=== PATIENT | female | born 1940 | race Caucasian/White ===

== ENCOUNTER 2025-03-04 15:41 | Emergency (ER) | payer OTHER, BC ==
[2025-03-04 15:55] VITALS: BP 165/74; PULSE 87; RESP 18; TEMP 98.2; BMI 22.3
[2025-03-04] MEDS ORDERED: DIPHTH,PERTUSS(ACELL),TET 0.5 ML DISP.SYRIN IM ONE (18:39)
[2025-03-04] MEDS: DIPHTH,PERTUSS(ACELL),TET 0.5 ML DISP.SYRIN IM ONE (18:42)
== END 2025-03-04 19:14 | disposition home or self-care (01) ==
LOC: FER 15:41
PROC: 3E0234Z Introduction of Serum, Toxoid and Vaccine into Muscle, Percutaneous Approach (ICD-10-PCS; principal; 2025-03-04)
DX: M25.532 Pain in left wrist (principal); J34.89 Other specified disorders of nose and nasal sinuses; Z23 Encounter for immunization; W18.09XA Striking against other object with subsequent fall, initial encounter; Y92.513 Shop (commercial) as the place of occurrence of the external cause
CPT/HCPCS: 70450-TC; 70486-TC; 72125-TC; 73110-TC-LT-FY; 73200-TC-RT; 90471; 90715; 99285-25